=== PATIENT | female | born 1995 | race African-American/Black ===

== ENCOUNTER 2018-05-09 11:35 | Inpatient (IN) ==
[2018-05-09] MEDS ORDERED: Sod Chloride 0.9% Inj 1,000 ML IV.SIG ONE (13:10)
--- NOTE | 2018-05-09 13:39 | ED ---
HPI General Chief complaint: Weakness Stated complaint: R Leg Numbness Time Seen by Provider: 05/09/18 12:54 Source: patient, EMS and RN notes reviewed Mode of arrival: EMS History of Present Illness HPI narrative: 22yF presenting with generalized weakness, myalgias, palpitations , and dizziness. The patient states that she was seen at [facility] 5 days ago for epigastric pain, was diagnosed with gastritis, and started on Pepcid BID. She says that since starting this medication, she has noticed a dark discoloration to her urine and continues to have "aching" epigastric pain. This morning, she was getting ready for work and says that when she stood up she felt "dizzy like I was going to pass out", had palpitations that lasted for 1-2 minutes, and had to sit down because she felt too weak to stand. She also reports full-body myalgias today as well. Contrary to triage note, patient reports generalized weakness but denies numbness or tingling to any extremities. Family history non-contributory. Related Data Home Medications Medication Instructions Recorded Confirmed famotidine [Pepcid] 40 mg PO BID 05/09/18 05/09/18 Allergies Allergy/AdvReac Type Severity Reaction Status Date / Time No Known Allergies Allergy Unverified 05/09/18 12:33 Review of Systems ROS: all other systems reviewed are negative Constitutional Denies fever(s) Eyes Denies blurry vision ENT Denies nasal congestion Cardiovascular Denies chest pain Respiratory Denies cough Gastrointestinal Denies melena, Denies hematochezia and Denies vomiting Genitourinary Denies dysuria Musculoskeletal Reports myalgias Neurologic Denies confusion Psychiatric Denies confusion [facility] History History Provided By: Patient Medical History Medical History GERD (gastroesophageal reflux disease) (Acute) Surgical History Surgical History No history of previous surgery (Acute) Social History Social History Second Hand Smoke Exposure: No Smoking Status: Never smoker How Often Do You Have a Drink Containing Alcohol: Never Immunization History Tetanus Immunization: <5 Years Hx Influenza Vaccine This Season: No Exam Const General: healthy appearing and no acute distress [facility] Head: normocephalic and atraumatic Face and sinus: normal facial exam Eyes General: appearance normal, both eyes and all related structures Pupils: PERRL Chest Chest: normal inspection of the chest Resp Effort & Inspection: normal respiratory effort Auscultation: no rhonchi and no wheezes Other: Lungs clear to auscultation bilaterally Cardio Rate: regular rate Rhythm: regular rhythm Heart Sounds: no murmurs GI Inspection: non-distended Palpation: soft and nontender Skin General: no rashes or lesions noted Neuro General: alert, awake and oriented x3 Other: Pupils 3 mm and reactive bilaterally, no nystagmus Speech clear and fluent, no slurred speech or aphasia GCS 15 Motor strength 5/5 in all extremities, no pronator drift, sensation intact to all extremities No focal neuro deficits Psych Affect: normal affect Course Consultations Consultation #1: Case discussed with Dr. Segovia (), who recommends obtaining CT abd/ pelvis, sending acute hepatitis panel, GEOVANI, and says the patient will need to stay in the hospital for further workup. Time: 18:50 Initial Documented Vital Signs Temperature 98.5 F 05/09/18 14:45 Pulse Rate 72 05/09/18 14:45 Respiratory Rate 16 05/09/18 14:45 Blood Pressure 127/81 05/09/18 14:45 Pulse Oximetry 100 05/09/18 14:45 Last Documented Vital Signs Temperature 98.5 F 05/09/18 14:45 Pulse Rate 75 05/09/18 18:00 Respiratory Rate 16 05/09/18 18:00 Blood Pressure 122/71 05/09/18 18:00 Pulse Oximetry 100 05/09/18 14:45 Medical Decision Making [facility] Narrative Medical decision making narrative: Assessment: 22yF presenting with weakness, palpitations, myalgias Plan: EKG and monitor UA, UCG Labs IV fluids CXR Addendum: Patient's workup reveals significantly elevated bilirubin (direct) and alk phos with some elevation of AST/ ALT. Her RUQ US shows no significant abnormalities. The patient denies any recent acetaminophen, aspirin, drug or alcohol, or other medication use. Case discussed with GI (please see consults section). I discussed these results with the patient as well as plan to keep her in the hospital for further workup; she understands and agrees. Case discussed with Dr. Ledesma [facility]. Medical Screen Exam Complete: Yes Emergency Medical Condition: Yes Differential Diagnosis Differential Diagnosis: Differential diagnosis includes, but is not limited to: dehydration, electrolyte abnormality, anemia, rhabdomyolysis, arrhythmia, UTI, Lab Data Lab results reviewed: Yes I reviewed the patient's lab results. Result diagrams: 05/09/18 13:40 05/09/18 13:40 POC Results POC Urine Results Negative Lab Results 05/09/18 05/09/18 05/09/18 Range/Units 13:40 13:40 13:40 WBC 7.4 (4.0-11.0) th/mm3 RBC 4.24 (4.00-5.30) mil/mm3 Hgb 11.9 (11.6-15.3) gm/dL Hct 36.3 (35.0-46.0) % MCV 85.8 (80.0-100.0) fL MCH 28.1 (27.0-34.0) pg MCHC 32.8 (32.0-36.0) % RDW 12.7 (11.6-17.2) % Plt Count 240 (150-450) th/mm3 MPV 8.0 (7.0-11.0) fL Neut % (Auto) 71.5 H (16.0-70.0) % Lymph % (Auto) 13.5 (9.0-44.0) % Barnes % (Auto) 11.1 H (0.0-8.0) % Eos % (Auto) 3.3 (0.0-4.0) % Baso % (Auto) 0.6 (0.0-2.0) % Neut # (Auto) 5.3 (1.8-7.7) th/mm3 Lymph # (Auto) 1.0 (1.0-4.8) th/mm3 Barnes # (Auto) 0.8 (0.0-0.9) th/mm3 Eos # (Auto) 0.2 (0.0-0.4) th/mm3 Baso # (Auto) 0.0 (0.0-0.2) th/mm3 WBC Differential . Differential Comment Auto diff final Sodium 140 (136-145) meq/L Potassium 3.8 (3.5-5.1) meq/L Chloride 103 (98-107) meq/L Carbon Dioxide 28.0 (21.0-32.0) meq/L Anion Gap 9 (5-15) meq/L BUN 5 L (7-18) mg/dL Creatinine 0.71 (0.50-1.00) mg/dL Estimated GFR Greater than 89 (>89) mL/min Random Glucose 91 (74-106) mg/dL Calcium 9.1 (8.5-10.1) mg/dL Total Bilirubin 4.4 H 4.4 H (0.2-1.0) mg/dL Direct Bilirubin 3.7 H (0.0-0.2) mg/dL Indirect Bilirubin 0.7 (0.0-0.8) mg/dL AST 75 H (15-37) U/L ALT 175 H (10-53) U/L Alkaline Phosphatase 297 H (45-117) U/L Total Creatine Kinase 40 (26-192) U/L Total Protein 8.1 (6.4-8.2) g/dL Albumin 3.1 L (3.4-5.0) g/dL Lipase 162 (73-393) U/L Urine Color (Yellw/Straw) Urine Clarity (Clear) Urine pH (5.0-8.5) Ur Specific [place] (1.002-1.035) Urine Protein (Neg-Trace) mg/dL Urine Glucose (UA) (Negative) mg/dL Urine Ketones (Negative) mg/dL Urine Occult Blood (Negative) Urine Nitrate (Negative) Urine Bilirubin (Negative) Urine Ictotest (Negative) Urine Urobilinogen (Less than 2) mg/dL Ur Leukocyte Esterase (Negative) Urine RBC (0-3) /hpf Urine WBC (0-5) /hpf Ur Squamous Epith Cells (0-5) /hpf Urine Bacteria (None) /hpf Urine Mucus (Occasional) /lpf Micro UA Comment Ur Microscopic Review Urine Culture Comments 05/09/18 Range/Units 13:47 WBC (4.0-11.0) th/mm3 RBC (4.00-5.30) mil/mm3 Hgb (11.6-15.3) gm/dL Hct (35.0-46.0) % MCV (80.0-100.0) fL MCH (27.0-34.0) pg MCHC (32.0-36.0) % RDW (11.6-17.2) % Plt Count (150-450) th/mm3 MPV (7.0-11.0) fL Neut % (Auto) (16.0-70.0) % Lymph % (Auto) (9.0-44.0) % Barnes % (Auto) (0.0-8.0) % Eos % (Auto) (0.0-4.0) % Baso % (Auto) (0.0-2.0) % Neut # (Auto) (1.8-7.7) th/mm3 Lymph # (Auto) (1.0-4.8) th/mm3 Barnes # (Auto) (0.0-0.9) th/mm3 Eos # (Auto) (0.0-0.4) th/mm3 Baso # (Auto) (0.0-0.2) th/mm3 WBC Differential Differential Comment Sodium (136-145) meq/L Potassium (3.5-5.1) meq/L Chloride (98-107) meq/L Carbon Dioxide (21.0-32.0) meq/L Anion Gap (5-15) meq/L BUN (7-18) mg/dL Creatinine (0.50-1.00) mg/dL Estimated GFR (>89) mL/min Random Glucose (74-106) mg/dL Calcium (8.5-10.1) mg/dL Total Bilirubin (0.2-1.0) mg/dL Direct Bilirubin (0.0-0.2) mg/dL Indirect Bilirubin (0.0-0.8) mg/dL AST (15-37) U/L ALT (10-53) U/L Alkaline Phosphatase (45-117) U/L Total Creatine Kinase (26-192) U/L Total Protein (6.4-8.2) g/dL Albumin (3.4-5.0) g/dL Lipase (73-393) U/L Urine Color Olga Lidia (Yellw/Straw) Urine Clarity Cloudy H (Clear) Urine pH 6.0 (5.0-8.5) Ur Specific [place] 1.019 (1.002-1.035) Urine Protein 30 H (Neg-Trace) mg/dL Urine Glucose (UA) Negative (Negative) mg/dL Urine Ketones Trace H (Negative) mg/dL Urine Occult Blood Negative (Negative) Urine Nitrate Negative (Negative) Urine Bilirubin Moderate H (Negative) Urine Ictotest Positive H (Negative) Urine Urobilinogen 4 or greater (Less than 2) mg/dL Ur Leukocyte Esterase Small H (Negative) Urine RBC 3 (0-3) /hpf Urine WBC 11 H (0-5) /hpf Ur Squamous Epith Cells 24 (0-5) /hpf Urine Bacteria Moderate H (None) /hpf Urine Mucus Moderate H (Occasional) /lpf Micro UA Comment Culture indicated Ur Microscopic Review Not Reportable Urine Culture Comments Culture indicated Imaging Data Radiologist's impression: Chest X-Ray 05/09/18 13:10 CONCLUSION: No acute cardiopulmonary disease. Gallbladder Ultrasound 05/09/18 15:44 CONCLUSION: 1. No evidence of gallstones or biliary tract obstruction. ECG Data Attestation: I personally reviewed and interpreted this ECG as follows: Interpretation: Rate: 100 BPM Rhythm: Sinus [place]: Normal Intervals: Normal intervals, no blocks, QTc 375 ms Q waves: None T waves: Upright, no inversions ST segments: No elevations or depressions Impression: Non-specific EKG, no previous EKG available for comparison. Discharge Plan Discharge Disposition Patient Disposition: 30 Still Patient Discharge Condition Condition: Good Discharge Details Diagnosis: Hyperbilirubinemia, Transaminitis, Abdominal pain, Acute UTI Physicians Team ED Provider: Jazmín Palomino Rxs /Orders / Referrals /Forms Prescriptions: No Action famotidine [Pepcid] 40 mg Tablet 40 mg PO BID RF: 0 Status ED Status: With Doctor
--- NOTE | 2018-05-09 14:09 | XR ---
EXAM DATE: 05/09/2018 1:32 PM EDT AGE/SEX: 22 years / Female INDICATIONS: . Palpitations CLINICAL DATA: This is the patient's initial encounter. Patient reports that signs and symptoms have been present for 2 days and indicates a pain score of 4/10. MEDICAL/SURGICAL HISTORY: None. None. COMPARISON: No prior exams available for comparison. FINDINGS: The lungs are clear without infiltrate, nodule, or mass. There is no appreciable pleural effusion fo r technique. Heart and mediastinum are unremarkable. CONCLUSION: No acute cardiopulmonary disease. Electronically signed by: Tyler Gibbons MD 05/09/2018 2:08 PM EDT
[2018-05-09 14:11] LABS: Baso % (Auto) 0.6 % (0.0-2.0); Eos # (Auto) 0.2 th/mm3 (0.0-0.4); Eos % (Auto) 3.3 % (0.0-4.0); Hematocrit 36.3 % (35.0-46.0); Hemoglobin 11.9 gm/dL (11.6-15.3); Lymph % (Auto) 13.5 % (9.0-44.0); Mean Corpuscular HGB Conc 32.8 % (32.0-36.0); Mean Corpuscular Hemoglobin 28.1 pg (27.0-34.0); Mean Corpuscular Volume 85.8 fL (80.0-100.0); Mono # (Auto) 0.8 th/mm3 (0.0-0.9); Mono % (Auto) 11.1 % (0.0-8.0); Neut # (Auto) 5.3 th/mm3 (1.8-7.7); Neut % (Auto) 71.5 % (16.0-70.0); Platelet Count 240 th/mm3 (150-450); Red Blood Count 4.24 mil/mm3 (4.00-5.30); Red Cell Distribution Width 12.7 % (11.6-17.2); White Blood Count 7.4 th/mm3 (4.0-11.0)
[2018-05-09 14:17] LABS: Bacteria,Urine Moderate /hpf; Bilirubin,Urine Moderate (Negative); Clarity,Urine Cloudy (Clear); Color,Urine Amber (Yellw/Straw); Glucose,Urine (UA) Negative (Negative); Leukocyte Esterase,Urine Small (Negative); Mucus,Urine Moderate /lpf (Occasional); Nitrite,Urine Negative (Negative); Specific Gravity,Urine 1.019 (1.002-1.035); Squamous Epithelial Cell,Urine 24 /hpf (0-5); Urobilinogen,Urine 4 or Greater mg/dL (Less than 2)
[2018-05-09 14:21] LABS: Ictotest,Urine Positive (Negative)
[2018-05-09 14:31] LABS: Alanine Aminotransferase 175 U/L (10-53); Albumin 3.1 g/dL (3.4-5.0); Anion Gap 9 meq/L (5-15); Aspartate Aminotransferase 75 U/L (15-37); Blood Urea Nitrogen 5 mg/dL (7-18); Calcium 9.1 mg/dL (8.5-10.1); Chloride 103 meq/L (98-107); Glomerular Filtration Rate Greater Than 89 mL/min (>89); Glucose,Random 91 mg/dL (74-106); Lipase 162 U/L (73-393); Potassium 3.8 meq/L (3.5-5.1); Sodium 140 meq/L (136-145)
[2018-05-09 14:33] LABS: Alkaline Phosphatase 297 U/L (45-117); Total Protein 8.1 g/dL (6.4-8.2)
[2018-05-09 14:34] LABS: Creatine Kinase 40 U/L (26-192)
--- NOTE | 2018-05-09 17:39 | US ---
EXAM DATE: 05/09/2018 5:37 PM EDT AGE/SEX: 22 years / Female INDICATIONS: Elevated bilirubin and liver functions. Epigastric pain. CLINICAL DATA: This is the patient's initial encounter. Patient reports that signs and symptoms have been present for 4 - 6 days and indicates a pain score of 4/10. MEDICAL/SURGICAL HISTORY: Gastroesophageal reflux disease. None. COMPARISON: No prior exams available for comparison. MEASUREMENTS: Liver:__ 17.0 cm. Common Bile Duct:__ 4mm. FINDINGS: Liver: Normal echotexture without focal lesion or ductal dilatation. Portal Vein: Hepatopedal flow seen in portal vein. Common Duct: No intraluminal mass or stone visualized. Gallbladder: No evidence of gallstones. No significant gallbladder wall thickening. There is no flui d around the gallbladder. Pancreas: The visualized portions are within normal limits Right Kidney: Normal echotexture and cortical thickness. No mass or hydronephrosis. CONCLUSION: 1. No evidence of gallstones or biliary tract obstruction. Electronically signed by: Freddy Desai MD 05/09/2018 5:38 PM EDT
[2018-05-09] MEDS ORDERED: Morphine Sulfate Inj 2 MG/ML Vial IV.PUSH ONE (19:29)
[2018-05-09] MEDS ORDERED: Prochlorperazine 25 MG Supp RECTAL PRN (19:49)
[2018-05-09] MEDS ORDERED: Bisacodyl 10 MG Supp RECTAL PRN (19:49)
--- NOTE | 2018-05-09 19:50 | CT ---
EXAM DATE: 05/09/2018 7:13 PM EDT AGE/SEX: 22 years / Female INDICATIONS: Right upper quadrant abdominal pain. CLINICAL DATA: This is the patient's initial encounter. Patient reports that signs and symptoms have been present for 4 - 6 days and indicates a pain score of 0/10. MEDICAL/SURGICAL HISTORY: Gastroesophageal reflux disease. None. RADIATION DOSE: 14.06 CTDI (mGy) COMPARISON: No prior exams available for comparison. TECHNIQUE: Multiple contiguous axial images were obtained through the abdomen. Images were obtained using multiple row detector helical technique. Using automated exposure control and adjustment of the mA and/or kV according to patient size, radiation dose was kept as low as reasonably achievable to o btain optimal diagnostic quality images. DICOM format image data is available electronically for rev iew and comparison. FINDINGS: Lower Lungs: The visualized lower lungs are clear. Liver: The liver has a homogeneous density without space-occupying lesion. There is no dilation of th e biliary tree. Spleen: Homogeneous density without enlargement. Pancreas: Unremarkable without mass or calcification. Kidneys: Normal in size and shape. No evidence of mass or hydronephrosis. Adrenal Glands: Unremarkable. Aorta: The aorta and proximal iliac vessels are grossly unremarkable without aneurysmal dilation. Bowel/Mesentery: The bowel loops are grossly unremarkable. The cecum and sigmoid colon have a normal configuration. Abdominal Wall: Intact. Retroperitoneum: No evidence of adenopathy in the retrocrural, para-aortic, or deep pelvic regions. Bladder: Contours are smooth. Reproductive Organs: No abnormal masses or calcifications seen. Inguinal: The inguinal region is unremarkable without evidence of adenopathy. Bony Structures: Unremarkable. CONCLUSION: Negative noncontrast CT examination of the abdomen and pelvis. Electronically signed by: Ger Peoples MD 05/09/2018 7:48 PM EDT
[2018-05-09] MEDS: Dextrose 5%/NaCl 0.45% Inj 1,000 ML IV.CONT SCH (21:11)
--- NOTE | 2018-05-09 21:45 | P.HPIM ---
History of Present Illness Primary Care Physician: Cyndy Madden History of Present Illness: 22-year-old female with who presents with a one-week history of dull intermittent nonradiating epigastric pain, progressively worsening generalized weakness, myalgias, palpitations, dizziness. She also notes that her urine has been dark. She visited an outside ER 1 week ago, got a CT which reportedly showed stomach wall thickening and was placed on PPI. She reports today she was so weak, she was unable to get out of bed, reports aching pain in all of her extremities, as well as palpitations upon standing.. She says subsequently however she has improved somewhat and muscle pain has improved as well. Review of Systems All other systems reviewed negative except as stated in HPI PMFSH - History History Provided By: Patient - Medical History Medical History: Medical History (Last Reviewed 05/09/18 @ 13:43 by Jazmín Palomino DO) GERD (gastroesophageal reflux disease) - Surgical History Surgical History: Surgical History (Last Reviewed 05/09/18 @ 13:43 by Jazmín Palomino DO) No history of previous surgery - Family History Family History: Family History (Last Updated 05/09/18 @ 21:39 by Waldo Sanchez MD) Mother Cholecystitis Father Healthy adult - Tobacco History Second Hand Smoke Exposure: No Smoking Status: Never smoker - Alcohol History How Often Do You Have a Drink Containing Alcohol: Never - Immunization History Tetanus Immunization: <5 Years Hx Influenza Vaccine This Season: No Medications and Allergies Active Medications: Active Medications Al Hydroxide/Mg Hydroxide (Milk Of Magnesia Liq) 30 ml PO Q12H PRN PRN Reason: Mild Constipation Bisacodyl (Dulcolax Supp) 10 mg RECTAL DAILY PRN PRN Reason: SEVERE CONSITIPATION Dextrose/Sodium Chloride (D5w/1/2 Ns Inj) 1,000 mls @ 150 mls/hr IV.CONT .Q6H40M DANIEL Last Admin: 05/09/18 21:11 Dose: 150 mls/hr Lactulose (Lactulose Liq) 30 ml PO DAILY PRN PRN Reason: SEVERE CONSITIPATION Metoclopramide HCl (Reglan Inj) 5 mg IV.PUSH Q6HR PRN; Protocol PRN Reason: NAUSEA OR VOMITING Ondansetron HCl (Zofran Inj) 4 mg IV.PUSH Q6H PRN PRN Reason: NAUSEA OR VOMITING Prochlorperazine (Compazine Supp) 25 mg RECTAL Q12HR PRN PRN Reason: NAUSEA OR VOMITING Sennosides (Senokot) 17.2 mg PO Q12H PRN PRN Reason: Moderate Constipation Allergies Allergy/AdvReac Type Severity Reaction Status Date / Time No Known Allergies Allergy Unverified 05/09/18 12:33 Home Medications Medication Instructions Recorded Confirmed Type famotidine [Pepcid] 40 mg PO BID 05/09/18 05/09/18 History Exam Vital signs: Vital Signs 05/09/18 14:45 05/09/18 18:00 Temperature 98.5 F Pulse Rate 72 75 Respiratory Rate 16 16 Blood Pressure 127/81 122/71 Pulse Oximetry 100 Narrative: GENERAL: Patient sitting up in bed. Appears comfortable. Alert and oriented 3. SKIN: Warm and dry. HEAD: Atraumatic. Normocephalic. EYES: Pupils equal and round. No scleral icterus. No injection or drainage. ENT: No nasal bleeding or discharge. Mucous membranes pink and moist. NECK: Trachea midline. No JVD. CARDIOVASCULAR: Regular rate and rhythm. RESPIRATORY: No accessory muscle use. Clear to auscultation. Breath sounds equal bilaterally. GASTROINTESTINAL: Abdomen soft, non-tender, nondistended. Hepatic and splenic margins not palpable.. Positive bowel sounds. MUSCULOSKELETAL: Extremities without clubbing, cyanosis, or edema. No obvious deformities. NEUROLOGICAL: Awake and alert. No obvious cranial nerve deficits. Motor grossly within normal limits. Five out of 5 muscle strength in the arms and legs. Normal speech. PSYCHIATRIC: Appropriate mood and affect; insight and judgment normal. Results - Labs CBC & Chem 7: 05/09/18 13:40 05/09/18 13:40 Labs: Short CBC 05/09/18 Range/Units 13:40 WBC 7.4 (4.0-11.0) th/mm3 Hgb 11.9 (11.6-15.3) gm/dL Hct 36.3 (35.0-46.0) % Plt Count 240 (150-450) th/mm3 [facility] 05/09/18 13:40 Sodium 140 Potassium 3.8 Chloride 103 Carbon Dioxide 28.0 BUN 5 L Creatinine 0.71 Calcium 9.1 Cardiac Enzymes 05/09/18 Range/Units 13:40 Total Creatine Kinase 40 (26-192) U/L Liver Function 05/09/18 05/09/18 Range/Units 13:40 13:40 Total Bilirubin 4.4 H 4.4 H (0.2-1.0) mg/dL Direct Bilirubin 3.7 H (0.0-0.2) mg/dL AST 75 H (15-37) U/L ALT 175 H (10-53) U/L Alkaline Phosphatase 297 H (45-117) U/L Albumin 3.1 L (3.4-5.0) g/dL Urine 05/09/18 Range/Units 13:47 Urine Color Olga Lidia (Yellw/Straw) Urine Clarity Cloudy H (Clear) Urine pH 6.0 (5.0-8.5) Ur Specific [place] 1.019 (1.002-1.035) Urine Protein 30 H (Neg-Trace) mg/dL Urine Glucose (UA) Negative (Negative) mg/dL - Imaging Impressions Chest X-Ray 05/09/18 13:10 CONCLUSION: No acute cardiopulmonary disease. Gallbladder Ultrasound 05/09/18 15:44 CONCLUSION: 1. No evidence of gallstones or biliary tract obstruction. Abdomen/Pelvis CT 05/09/18 18:49 CONCLUSION: Negative noncontrast CT examination of the abdomen and pelvis. Caprini VTE Risk Assessment Caprini VTE Risk Assessment: No/Low Risk (score <= 1) Caprini Risk Assessment Model: Point Value = 1 Point Value = 2 Point Value = 3 Point Value = 5 Age 41-60 Minor surgery BMI > 25 kg/m2 Swollen legs Varicose veins or History of unexplained or recurrent spontaneous Oral contraceptives or hormone replacement Sepsis (< 1 month) Serious lung disease, including pneumonia (< 1 month) Abnormal pulmonary function Acute myocardial infarction Congestive heart failure (< 1 month) History of inflammatory bowel disease Medical patient at bed rest Age 61-74 Arthroscopic surgery Major open surgery (> 45 min) Laparoscopic surgery (> 45 min) Malignancy Confined to bed (> 72 hours) Immobilizing plaster cast Central venous access Age >= 75 History of VTE Family history of VTE Factor V Leiden Prothrombin [id number] Lupus anticoagulant Anticardiolipin antibodies Elevated serum homocysteine Heparin-induced thrombocytopenia Other congenital or acquired thrombophilia Stroke (< 1 month) Elective arthroplasty Hip, pelvis, or leg fracture Acute spinal cord injury (< 1 month) Prophylaxis Regimen: Total Risk Factor Score Risk Level Prophylaxis Regimen 0-1 Low Early ambulation 2 Moderate Order ONE of the following: *Sequential Compression Device (SCD) *Heparin 5000 units SQ BID 3-4 Higher Order ONE of the following medications: *Heparin 5000 units SQ TID *Enoxaparin/Lovenox 40 mg SQ daily (WT < 150 kg, CrCl > 30 mL/min) *Enoxaparin/Lovenox 30 mg SQ daily (WT < 150 kg, CrCl > 10-29 mL/min) *Enoxaparin/Lovenox 30 mg SQ BID (WT < 150 kg, CrCl > 30 mL/min) AND/OR *Sequential Compression Device (SCD) 5 or more Highest Order ONE of the following medications: *Heparin 5000 units SQ TID (Preferred with Epidurals) *Enoxaparin/Lovenox 40 mg SQ daily (WT < 150 kg, CrCl > 30 mL/min) *Enoxaparin/Lovenox 30 mg SQ daily (WT < 150 kg, CrCl > 10-29 mL/min) *Enoxaparin/Lovenox 30 mg SQ BID (WT < 150 kg, CrCl > 30 mL/min) AND *Sequential Compression Device (SCD) Assessment and Plan - Plan //Transaminitis //Direct hyperbilirubinemia //Abdominal pain -Liver ultrasound negative for cholecystitis -MRCP, hepatitis profile pending Pain control as necessary. -Consult GI. Appreciate assistance. //Myalgias, vague abdominal pain //Rule out porphyria -CK within normal limits. -We will check urine and plasma porphyrins. Start on D5 fluids. Discussed Condition With: Patient, nurse, ED physician.
[2018-05-09] MEDS ORDERED: Naloxone Inj 0.4 MG/ML Vial IV.PUSH PRN (21:46)
[2018-05-09 22:36] LABS: Hepatitis A IgM Antibody Nonreactive (Nonreactive); Hepatitits B Surface Antigen Nonreactive (Nonreactive)
[2018-05-09] MEDS: Pantoprazole Inj 40 MG Vial IV.PUSH SCH (23:09)
[2018-05-10 00:12] LABS: Amphetamine Screen,Urine Neg (Neg); Barbiturate Screen,Urine Neg (Neg); Cannabinoid Screen,Urine Neg (Neg); Cocaine Screen,Urine Neg (Neg)
[2018-05-10 00:31] LABS: Opiate Screen,Urine Neg (Neg)
[2018-05-10] MEDS: Dextrose 5%/NaCl 0.45% Inj 1,000 ML IV.CONT SCH ×4 (04:06→16:00)
[2018-05-10 06:39] LABS: Baso % (Auto) 0.6 % (0.0-2.0); Eos # (Auto) 0.4 th/mm3 (0.0-0.4); Eos % (Auto) 5.5 % (0.0-4.0); Hematocrit 32.5 % (35.0-46.0); Hemoglobin 10.9 gm/dL (11.6-15.3); Lymph # (Auto) 1.1 th/mm3 (1.0-4.8); Lymph % (Auto) 15.7 % (9.0-44.0); Mean Corpuscular HGB Conc 33.5 % (32.0-36.0); Mean Corpuscular Hemoglobin 28.5 pg (27.0-34.0); Mean Corpuscular Volume 84.9 fL (80.0-100.0); Mono # (Auto) 0.8 th/mm3 (0.0-0.9); Mono % (Auto) 12.6 % (0.0-8.0); Neut # (Auto) 4.4 th/mm3 (1.8-7.7); Neut % (Auto) 65.6 % (16.0-70.0); Platelet Count 210 th/mm3 (150-450); Red Blood Count 3.83 mil/mm3 (4.00-5.30); Red Cell Distribution Width 13.1 % (11.6-17.2); White Blood Count 6.7 th/mm3 (4.0-11.0)
[2018-05-10 06:58] LABS: Albumin 2.7 g/dL (3.4-5.0); Anion Gap 8 meq/L (5-15); Aspartate Aminotransferase 60 U/L (15-37); Blood Urea Nitrogen 3 mg/dL (7-18); Calcium 8.7 mg/dL (8.5-10.1); Carbon Dioxide 27.4 meq/L (21.0-32.0); Chloride 106 meq/L (98-107); Glomerular Filtration Rate Greater Than 89 mL/min (>89); Glucose,Random 124 mg/dL (74-106); Potassium 3.4 meq/L (3.5-5.1); Sodium 141 meq/L (136-145)
[2018-05-10 07:01] LABS: Alanine Aminotransferase 140 U/L (10-53); Alkaline Phosphatase 274 U/L (45-117); Total Protein 7.2 g/dL (6.4-8.2)
--- NOTE | 2018-05-10 08:36 | P.CONGI ---
History of Present Illness Consult date: 05/10/18 Consult reason: Elevated LFTs Chief complaint: Hyperbilirubinemia, Elevated LFTs, Abdominal Pain History of Present Illness: This is a 22 yo F with no significant PMH who presented to [facility] lat night with multiple complaints including epigastric pain, nausea, body aches, weakness , and headaches. Our service has been consulted to evaluate pt for elevated liver enzymes. Pt reports that symptoms began on Sunday afternoon with back, leg and abdominal pain. She tried to sleep it off with no relief. Pt was seen in the [facility] ER on Sunday, had chest x-ray, no labs, was diagnosed with Gastritis/GERD and discharged home with a prescription for Pepcid that she has been taking twice a day. Pt reports some relief in the epigastric pain with the Pepcid but overall is not feeling much better. Currently, pt reports epigastric pain that is intermittent, states worse with movement, some relief with Pepcid, not related to PO intake. Also reports some occasional heartburn. States that she has been intermittently nauseous but has not had any emesis, not related to PO intake. Denies any changes in bowel habits but has not been having frequent BMs because she has not been eating. Denies any unintentional weight loss. Has been having dark urine that she states began when she was started on Pepcid on Sunday, denies noticing any yellowing to her eyes. Pt thinks she may have been running a fever but has not checked her temperature. Pt has been found to have elevated LFTs. She denies personal or known family history of liver issues, of note, she does not know her fathers medical history. Reports occasional ETOH, had two shots of alcohol two weeks ago. Started taking a new medication, Depo Medroxyprogesterone for control, her first injection was on March 01. She denies any other OTC medications, herbs , and supplements. Pt denies smoking, drug use and history of, tattoos. States that she has protected sex with one partner. <Miya Maravilla - Last Filed: 05/10/18 08:10> Review of Systems Constitutional: Reports body ache(s), Reports fatigue, Reports fever(s), Denies weight loss Cardiovascular: Denies chest pain Gastrointestinal: Reports abdominal pain, Reports nausea, Denies change in bowel habits, Denies vomiting Genitourinary: Reports abnormal periods (since being started on new control ) <Miya Maravilla - Last Filed: 05/10/18 08:10> PMFSH - History History Provided By: Patient - Medical History Medical History: Medical History (Last Updated 05/10/18 @ 08:34 by Miya Maravilla) (Acute) GERD (gastroesophageal reflux disease) - Family History Family History: Family History (Last Updated 05/09/18 @ 21:39 by Waldo Sanchez MD) Mother Cholecystitis Father Healthy adult - Tobacco History Second Hand Smoke Exposure: No Tobacco Use In Past 30 Days: No Smoking Status: Former smoker Tobacco Type: Cigarettes - Alcohol History How Often Do You Have a Drink Containing Alcohol: Monthly or less - Substance Use History Substance History: No History of Abuse - Immunization History Tetanus Immunization: <5 Years Hx Influenza Vaccine This Season: No <Miya Maravilla - Last Filed: 05/10/18 08:10> - Medical History Medical History: Medical History (Last Updated 05/10/18 @ 08:34 by Miya Maravilla) (Acute) GERD (gastroesophageal reflux disease) - Family History Family History: Family History (Last Updated 05/09/18 @ 21:39 by Waldo Sanchez MD) Mother Cholecystitis Father Healthy adult <Angle Jain - Last Filed: 05/10/18 15:27> Medications and Allergies Active Medications: Active Medications Al Hydroxide/Mg Hydroxide (Milk Of Magnesia Liq) 30 ml PO Q12H PRN PRN Reason: Mild Constipation Bisacodyl (Dulcolax Supp) 10 mg RECTAL DAILY PRN PRN Reason: SEVERE CONSITIPATION Dextrose/Sodium Chloride (D5w/1/2 Ns Inj) 1,000 mls @ 150 mls/hr IV.CONT .Q6H40M [facility] Last Admin: 05/10/18 05:50 Dose: 150 mls/hr Lactulose (Lactulose Liq) 30 ml PO DAILY PRN PRN Reason: SEVERE CONSITIPATION Metoclopramide HCl (Reglan Inj) 5 mg IV.PUSH Q6HR PRN; Protocol PRN Reason: NAUSEA OR VOMITING Naloxone HCl (Narcan Inj) 0.4 mg IV.PUSH UNSCH PRN PRN Reason: SEE LABEL COMMENTS Ondansetron HCl (Zofran Inj) 4 mg IV.PUSH Q6H PRN PRN Reason: NAUSEA OR VOMITING Oxycodone HCl (Roxicodone) 5 mg PO Q4H PRN PRN Reason: PAIN SCALE 3 TO 5 Oxycodone HCl (Roxicodone) 7.5 mg PO Q4H PRN PRN Reason: PAIN SCALE 6 TO 10 Pantoprazole Sodium (Protonix Inj) 40 mg IV.PUSH Q12H [facility] Last Admin: 05/09/18 23:09 Dose: 40 mg Prochlorperazine (Compazine Supp) 25 mg RECTAL Q12HR PRN PRN Reason: NAUSEA OR VOMITING Sennosides (Senokot) 17.2 mg PO Q12H PRN PRN Reason: Moderate Constipation <Miya Maravilla - Last Filed: 05/10/18 08:10> Active Medications: Active Medications Al Hydroxide/Mg Hydroxide (Milk Of Magnesia Liq) 30 ml PO Q12H PRN PRN Reason: Mild Constipation Bisacodyl (Dulcolax Supp) 10 mg RECTAL DAILY PRN PRN Reason: SEVERE CONSITIPATION Dextrose/Sodium Chloride (D5w/1/2 Ns Inj) 1,000 mls @ 150 mls/hr IV.CONT .Q6H40M [facility] Last Admin: 05/10/18 11:58 Dose: Not Given Lactulose (Lactulose Liq) 30 ml PO DAILY PRN PRN Reason: SEVERE CONSITIPATION Metoclopramide HCl (Reglan Inj) 5 mg IV.PUSH Q6HR PRN; Protocol PRN Reason: NAUSEA OR VOMITING Naloxone HCl (Narcan Inj) 0.4 mg IV.PUSH UNSCH PRN PRN Reason: SEE LABEL COMMENTS Ondansetron HCl (Zofran Inj) 4 mg IV.PUSH Q6H PRN PRN Reason: NAUSEA OR VOMITING Oxycodone HCl (Roxicodone) 5 mg PO Q4H PRN PRN Reason: PAIN SCALE 3 TO 5 Oxycodone HCl (Roxicodone) 7.5 mg PO Q4H PRN PRN Reason: PAIN SCALE 6 TO 10 Pantoprazole Sodium (Protonix Inj) 40 mg IV.PUSH Q12H [facility] Last Admin: 05/10/18 11:46 Dose: 40 mg Prochlorperazine (Compazine Supp) 25 mg RECTAL Q12HR PRN PRN Reason: NAUSEA OR VOMITING Sennosides (Senokot) 17.2 mg PO Q12H PRN PRN Reason: Moderate Constipation <Angle Jain - Last Filed: 05/10/18 15:27> Allergies Allergy/AdvReac Type Severity Reaction Status Date / Time No Known Allergies Allergy Unverified 05/09/18 12:33 Home Medications Medication Instructions Recorded Confirmed Type famotidine [Pepcid] 40 mg PO BID 05/09/18 05/09/18 History Exam Vital signs: Vital Signs 05/09/18 14:45 05/09/18 18:00 05/09/18 20:00 Temperature 98.5 F 99.5 F Pulse Rate 72 75 94 H Respiratory Rate 16 16 18 Blood Pressure 127/81 122/71 116/67 Pulse Oximetry 100 100 05/10/18 00:00 05/10/18 03:46 Temperature 99.5 F 98.6 F Pulse Rate 98 H 80 Respiratory Rate 18 16 Blood Pressure 108/63 128/73 Pulse Oximetry 98 100 Intake & Output 05/09/18 05/10/18 05/10/18 18:59 06:59 18:59 Intake Total 2100 / 2100 Output Total 550 / 550 Balance 1550 / 1550 Weight 86.183 kg Intake: IV 2100 / 2100 D5W/1/2 NS Inj 1,000 ML @ 150 1000 / 1000 mls/hr IV.CONT .Q6H40M [facility] Rx#: [id number] Rocephin Inj 1,000 MG In NS Inj 100 / 100 100 ML @ 200 mls/hr IV.SIG ONCE ONE Rx#:[id number] Oral 0 / 0 Output: Urine 550 / 550 Other: Weight On Admission 86.183 kg - Constitutional no acute distress - Routine HEENT Exam Head: Present: normocephalic, atraumatic Eye: Present: conjunctival icterus - Routine Respiratory Exam Absent: accessory muscle use - Routine Cardiovascular Exam Present: RRR - Routine Abdominal Exam Present: soft, normoactive bowel sounds. Absent: tenderness, distended - Routine Skin Exam Present: dry, warm - Routine Neurological Exam Present: alert, oriented X3 <Miya Maravilla - Last Filed: 05/10/18 08:10> Vital signs: Vital Signs 05/09/18 18:00 05/09/18 20:00 05/10/18 00:00 Temperature 99.5 F 99.5 F Pulse Rate 75 94 H 98 H Respiratory Rate 18 Blood Pressure 122/71 116/67 108/63 Pulse Oximetry 100 98 05/10/18 03:46 05/10/18 08:00 05/10/18 12:00 Temperature 98.6 F 98.1 F 99.5 F Pulse Rate 80 76 88 Respiratory Rate 18 Blood Pressure 128/73 125/76 135/83 Pulse Oximetry 100 99 100 Intake & Output 05/09/18 05/10/18 05/10/18 18:59 06:59 18:59 Intake Total 2100 / 2100 Output Total 550 / 550 Balance 1550 / 1550 Weight 86.183 kg Intake: IV 2100 / 2100 D5W/1/2 NS Inj 1,000 ML @ 150 1000 / 1000 mls/hr IV.CONT .Q6H40M [facility] Rx#: [id number] Rocephin Inj 1,000 MG In NS Inj 100 / 100 100 ML @ 200 mls/hr IV.SIG ONCE ONE Rx#:[id number] Oral 0 / 0 Output: Urine 550 / 550 Other: Weight On Admission 86.183 kg <Angle Jain - Last Filed: 05/10/18 15:27> Results - Labs CBC & Chem 7: 05/10/18 06:09 05/10/18 06:09 Labs: Laboratory Results - last 24 hr 05/09/18 05/09/18 05/09/18 13:40 13:40 13:40 WBC 7.4 RBC 4.24 Hgb 11.9 Hct 36.3 MCV 85.8 MCH 28.1 MCHC 32.8 RDW 12.7 Plt Count 240 MPV 8.0 Neut % (Auto) 71.5 H Lymph % (Auto) 13.5 [place] % (Auto) 11.1 H Eos % (Auto) 3.3 Baso % (Auto) 0.6 Neut # (Auto) 5.3 Lymph # (Auto) 1.0 [place] # (Auto) 0.8 Eos # (Auto) 0.2 Baso # (Auto) 0.0 WBC Differential . Differential Comment Auto diff final Sodium 140 Potassium 3.8 Chloride 103 Carbon Dioxide 28.0 Anion Gap 9 BUN 5 L Creatinine 0.71 Estimated GFR Greater than 89 Random Glucose 91 Calcium 9.1 Total Bilirubin 4.4 H 4.4 H Direct Bilirubin 3.7 H Indirect Bilirubin 0.7 AST 75 H ALT 175 H Alkaline Phosphatase 297 H Total Creatine Kinase 40 Total Protein 8.1 Albumin 3.1 L Lipase 162 Beta HCG, Qual Urine Color Urine Clarity Urine pH Ur Specific [place] Urine Protein Urine Glucose (UA) Urine Ketones Urine Occult Blood Urine Nitrate Urine Bilirubin Urine Ictotest Urine Urobilinogen Ur Leukocyte Esterase Urine RBC Urine WBC Ur Squamous Epith Cells Urine Bacteria Urine Mucus Micro UA Comment Ur Microscopic Review Urine Culture Comments Urine Opiates Screen Ur Barbiturates Screen Ur Amphetamines Screen U Benzodiazepines Scrn Urine Cocaine Screen U Cannabinoids Screen Hepatitis A IgM Ab Hep Bs Antigen Hep B Core IgM Ab Hep C IgG Ab 05/09/18 05/09/18 05/09/18 13:40 13:47 13:47 WBC RBC Hgb Hct MCV MCH MCHC RDW Plt Count MPV Neut % (Auto) Lymph % (Auto) [place] % (Auto) Eos % (Auto) Baso % (Auto) Neut # (Auto) Lymph # (Auto) [place] # (Auto) Eos # (Auto) Baso # (Auto) WBC Differential Differential Comment Sodium Potassium Chloride Carbon Dioxide Anion Gap BUN Creatinine Estimated GFR Random Glucose Calcium Total Bilirubin Direct Bilirubin Indirect Bilirubin AST ALT Alkaline Phosphatase Total Creatine Kinase Total Protein Albumin Lipase Beta HCG, Qual Less than 1.0 Urine Color Olga Lidia Urine Clarity Cloudy H Urine pH 6.0 Ur Specific [place] 1.019 Urine Protein 30 H Urine Glucose (UA) Negative Urine Ketones Trace H Urine Occult Blood Negative Urine Nitrate Negative Urine Bilirubin Moderate H Urine Ictotest Positive H Urine Urobilinogen 4 or greater Ur Leukocyte Esterase Small H Urine RBC 3 Urine WBC 11 H Ur Squamous Epith Cells 24 Urine Bacteria Moderate H Urine Mucus Moderate H Micro UA Comment Culture indicated Ur Microscopic Review Not Reportable Urine Culture Comments Culture indicated Urine Opiates Screen Neg Ur Barbiturates Screen Neg Ur Amphetamines Screen Neg U Benzodiazepines Scrn Neg Urine Cocaine Screen Neg U Cannabinoids Screen Neg Hepatitis A IgM Ab Hep Bs Antigen Hep B Core IgM Ab Hep C IgG Ab 05/09/18 05/10/18 05/10/18 20:53 06:09 06:09 WBC 6.7 RBC 3.83 L Hgb 10.9 L Hct 32.5 L MCV 84.9 MCH 28.5 MCHC 33.5 RDW 13.1 Plt Count 210 MPV 8.0 Neut % (Auto) 65.6 Lymph % (Auto) 15.7 [place] % (Auto) 12.6 H Eos % (Auto) 5.5 H Baso % (Auto) 0.6 Neut # (Auto) 4.4 Lymph # (Auto) 1.1 [place] # (Auto) 0.8 Eos # (Auto) 0.4 Baso # (Auto) 0.0 WBC Differential . Differential Comment Auto diff final Sodium 141 Potassium 3.4 L Chloride 106 Carbon Dioxide 27.4 Anion Gap 8 BUN 3 L Creatinine 0.67 Estimated GFR Greater than 89 Random Glucose 124 H Calcium 8.7 Total Bilirubin 3.6 H Direct Bilirubin Indirect Bilirubin AST 60 H ALT 140 H Alkaline Phosphatase 274 H Total Creatine Kinase Total Protein 7.2 D Albumin 2.7 L Lipase Beta HCG, Qual Urine Color Urine Clarity Urine pH Ur Specific [place] Urine Protein Urine Glucose (UA) Urine Ketones Urine Occult Blood Urine Nitrate Urine Bilirubin Urine Ictotest Urine Urobilinogen Ur Leukocyte Esterase Urine RBC Urine WBC Ur Squamous Epith Cells Urine Bacteria Urine Mucus Micro UA Comment Ur Microscopic Review Urine Culture Comments Urine Opiates Screen Ur Barbiturates Screen Ur Amphetamines Screen U Benzodiazepines Scrn Urine Cocaine Screen U Cannabinoids Screen Hepatitis A IgM Ab Nonreactive Hep Bs Antigen Nonreactive Hep B Core IgM Ab Nonreactive Hep C IgG Ab Nonreactive - Imaging Impressions Chest X-Ray 05/09/18 13:10 CONCLUSION: No acute cardiopulmonary disease. Gallbladder Ultrasound 05/09/18 15:44 CONCLUSION: 1. No evidence of gallstones or biliary tract obstruction. Abdomen/Pelvis CT 05/09/18 18:49 CONCLUSION: Negative noncontrast CT examination of the abdomen and pelvis. <Miya Maravilla - Last Filed: 05/10/18 08:10> - Labs CBC & Chem 7: 05/10/18 06:09 05/10/18 06:09 Labs: Laboratory Results - last 24 hr 05/09/18 05/09/18 05/09/18 13:40 13:40 13:47 WBC RBC Hgb Hct MCV MCH MCHC RDW Plt Count MPV Neut % (Auto) Lymph % (Auto) [place] % (Auto) Eos % (Auto) Baso % (Auto) Neut # (Auto) Lymph # (Auto) [place] # (Auto) Eos # (Auto) Baso # (Auto) WBC Differential Differential Comment Sodium Potassium Chloride Carbon Dioxide Anion Gap BUN Creatinine Estimated GFR Random Glucose Calcium Iron TIBC % Saturation Ferritin Total Bilirubin 4.4 H Direct Bilirubin 3.7 H Indirect Bilirubin 0.7 AST ALT Alkaline Phosphatase Total Protein Albumin Triglycerides Cholesterol LDL Cholesterol, Calc HDL Cholesterol Cholesterol/HDL Ratio Beta HCG, Qual Less than 1.0 Urine Color Olga Lidia Urine Clarity Cloudy H Urine pH 6.0 Ur Specific [place] 1.019 Urine Protein 30 H Urine Glucose (UA) Negative Urine Ketones Trace H Urine Occult Blood Negative Urine Nitrate Negative Urine Bilirubin Moderate H Urine Ictotest Positive H Urine Urobilinogen 4 or greater Ur Leukocyte Esterase Small H Urine RBC 3 Urine WBC 11 H Ur Squamous Epith Cells 24 Urine Bacteria Moderate H Urine Mucus Moderate H Micro UA Comment Culture indicated Urine Culture Comments Culture indicated Urine Opiates Screen Ur Barbiturates Screen Ur Amphetamines Screen U Benzodiazepines Scrn Urine Cocaine Screen U Cannabinoids Screen Hepatitis A IgM Ab Hep Bs Antigen Hep B Core IgM Ab Hep C IgG Ab Monoscreen 05/09/18 05/09/18 05/10/18 13:47 20:53 06:09 WBC 6.7 RBC 3.83 L Hgb 10.9 L Hct 32.5 L MCV 84.9 MCH 28.5 MCHC 33.5 RDW 13.1 Plt Count 210 MPV 8.0 Neut % (Auto) 65.6 Lymph % (Auto) 15.7 [place] % (Auto) 12.6 H Eos % (Auto) 5.5 H Baso % (Auto) 0.6 Neut # (Auto) 4.4 Lymph # (Auto) 1.1 [place] # (Auto) 0.8 Eos # (Auto) 0.4 Baso # (Auto) 0.0 WBC Differential . Differential Comment Auto diff final Sodium Potassium Chloride Carbon Dioxide Anion Gap BUN Creatinine Estimated GFR Random Glucose Calcium Iron TIBC % Saturation Ferritin Total Bilirubin Direct Bilirubin Indirect Bilirubin AST ALT Alkaline Phosphatase Total Protein Albumin Triglycerides Cholesterol LDL Cholesterol, Calc HDL Cholesterol Cholesterol/HDL Ratio Beta HCG, Qual Urine Color Urine Clarity Urine pH Ur Specific [place] Urine Protein Urine Glucose (UA) Urine Ketones Urine Occult Blood Urine Nitrate Urine Bilirubin Urine Ictotest Urine Urobilinogen Ur Leukocyte Esterase Urine RBC Urine WBC Ur Squamous Epith Cells Urine Bacteria Urine Mucus Micro UA Comment Urine Culture Comments Urine Opiates Screen Neg Ur Barbiturates Screen Neg Ur Amphetamines Screen Neg U Benzodiazepines Scrn Neg Urine Cocaine Screen Neg U Cannabinoids Screen Neg Hepatitis A IgM Ab Nonreactive Hep Bs Antigen Nonreactive Hep B Core IgM Ab Nonreactive Hep C IgG Ab Nonreactive Monoscreen 05/10/18 05/10/18 05/10/18 06:09 11:45 11:45 WBC RBC Hgb Hct MCV MCH MCHC RDW Plt Count MPV Neut % (Auto) Lymph % (Auto) [place] % (Auto) Eos % (Auto) Baso % (Auto) Neut # (Auto) Lymph # (Auto) [place] # (Auto) Eos # (Auto) Baso # (Auto) WBC Differential Differential Comment Sodium 141 Potassium 3.4 L Chloride 106 Carbon Dioxide 27.4 Anion Gap 8 BUN 3 L Creatinine 0.67 Estimated GFR Greater than 89 Random Glucose 124 H Calcium 8.7 Iron 47 L TIBC 329 % Saturation 14.3 L Ferritin 120 Total Bilirubin 3.6 H Direct Bilirubin Indirect Bilirubin AST 60 H ALT 140 H Alkaline Phosphatase 274 H Total Protein 7.2 D Albumin 2.7 L Triglycerides 92 Cholesterol 150 LDL Cholesterol, Calc 108 H HDL Cholesterol 23.6 L Cholesterol/HDL Ratio 6.35 Beta HCG, Qual Urine Color Urine Clarity Urine pH Ur Specific [place] Urine Protein Urine Glucose (UA) Urine Ketones Urine Occult Blood Urine Nitrate Urine Bilirubin Urine Ictotest Urine Urobilinogen Ur Leukocyte Esterase Urine RBC Urine WBC Ur Squamous Epith Cells Urine Bacteria Urine Mucus Micro UA Comment Urine Culture Comments Urine Opiates Screen Ur Barbiturates Screen Ur Amphetamines Screen U Benzodiazepines Scrn Urine Cocaine Screen U Cannabinoids Screen Hepatitis A IgM Ab Hep Bs Antigen Hep B Core IgM Ab Hep C IgG Ab Monoscreen Neg - Imaging Impressions Gallbladder Ultrasound 05/09/18 15:44 CONCLUSION: 1. No evidence of gallstones or biliary tract obstruction. Abdomen/Pelvis CT 05/09/18 18:49 CONCLUSION: Negative noncontrast CT examination of the abdomen and pelvis. Cholangiopancreatography MRI 05/10/18 00:00 CONCLUSION: 1. Negative examination of the biliary tree <Angle Jain - Last Filed: 05/10/18 15:27> Assessment and Plan - Plan Assessment: -Elevated LFTs AST-60 ALT-140 Alk phos-274 T bili-3.6 lipase WNL Pt denies personal or family history of liver issues. Occasional ETOH, states two shots of liquor two weeks ago. Denies smoking and drug use. Denies tattoos. Protected sex with one sexual partner. New prescription: Depo Medroxyprogesterone, first injection was March 01. Denies any other OTC medications, herbs, supplements. Of note, was started on Pepcid on Sunday when she was seen at [facility] ER- chest xray done normal, no labs, diagnosed with Gastritis/GERD Complaining of: Epigastric pain, intermittent since Sunday, burning sensation, worse with movement, some improvement with Pepcid, not changed with PO intake. Also complaining of body aches- legs, back, and head. Dark urine since starting Pepcid on Sunday. Subjective fevers, has not checked her temperature. Occasional heartburn. Some nausea, denies emesis, not related to PO intake. Denies unintentional weight loss, history of GI issues. Has never had EGD or colonoscopy. Family history: Mother had gallstones, unknown father medical history. Liver work up: US gallbladder (05/09) No evidence of gallstones or biliary tract obstruction. CT abdomen and pelvis WO IV contrast (05/09) Negative noncontrast CT examination of the abdomen and pelvis. Hepatitis panel negative Plan: MRCP Lipid panel Liver work up [place] screen Depending on findings, EGD Sunday or outpt depending on course Monitor LFTs ? medication induced if above work up negative Avoid hepatotoxins Further recommendations to follow Pt has been seen and examined by myself and Dr. Jain and this note is written on his behalf <Miya Maravilla - Last Filed: 05/10/18 08:10> - Plan Seen and examined with [employer] [facility], unclear etiolgy of LFT elevation. MRCP ordered. LFTs improving , continue to monitor. Dr Flores will follow. Thank you The exam, history, and the medical decision-making described in the above note were completed with the assistance of the mid-level provider. I reviewed and agree with the findings presented. I attest that I had a [id number] encounter with the patient on the same day, and personally performed and documented my assessment and findings in the medical record. <Angle Jain - Last Filed: 05/10/18 15:27>
--- NOTE | 2018-05-10 09:36 | ECG ---
Date Performed: 05/09/2018 Time Performed: 14:49:19 PTAGE: 22 years EKG: SINUS TACHYCARDIA ABNORMAL RHYTHM ECG NO PREVIOUS TRACING DOCTOR: Memo Hernandez Interpretating Date/Time 05/10/2018 09:33:49
--- NOTE | 2018-05-10 10:30 | MR ---
EXAM DATE: 05/10/2018 9:44 AM EDT AGE/SEX: 22 years / Female INDICATIONS: Abdominal pain. CLINICAL DATA: This is the patient's initial encounter. Patient reports that signs and symptoms have been present for 1 day and indicates a pain score of 0/10. MEDICAL/SURGICAL HISTORY: None. None. COMPARISON: [facility], CT ABDOMEN & PELVIS W/O CONTRAST, 05/09/2018. . TECHNIQUE: Multiplanar, multisequence images of the abdomen were obtained without contrast including dedicated cholangiographic images. FINDINGS: The liver and spleen are free of focal defects. The gallbladder and pancreas demonstrate no abnormali ty. The adrenal glands demonstrate no abnormality. The kidneys demonstrate no hydronephrosis or mass. No free fluid or abdominal masses are identified. No para-aortic adenopathy is seen Examination of biliary tree with multiplanar and 3-D reconstruction demonstrates no evidence of commo n duct stone. No intrahepatic or extra hepatic ductal dilatation is identified. The pancreatic duct i s unremarkable. CONCLUSION: 1. Negative examination of the biliary tree Electronically signed by: Memo Reardon MD 05/10/2018 10:29 AM EDT
[2018-05-10] MEDS: Pantoprazole Inj 40 MG Vial IV.PUSH SCH ×2 (11:46→21:04)
[2018-05-10 12:21] LABS: % Iron Saturation 14.3 % (20-50)
[2018-05-10 12:23] LABS: Chol/HDL Ratio 6.35 Ratio; HDL Cholesterol 23.6 mg/dL (40.0-60.0)
[2018-05-10 13:20] LABS: Mono Screen Neg (Neg)
--- NOTE | 2018-05-10 15:44 | P.PNIM ---
Subjective Interval history: 22-year-old female with who presents with a one-week history of dull intermittent nonradiating epigastric pain, progressively worsening generalized weakness, myalgias, palpitations, dizziness. She also notes that her urine has been dark. She visited an outside ER 1 week ago, got a CT which reportedly showed stomach wall thickening and was placed on PPI. She reports today she was so weak, she was unable to get out of bed, reports aching pain in all of her extremities, as well as palpitations upon standing.. She says subsequently however she has improved somewhat and muscle pain has improved as well. 8 HAD MRCP THAT IS NEGATIVE POSSIBLY PASSED A STONE AM LABS DW RN AND PT AND CM WILL ADVANCE DIET AM LABS Physical Exam Vital signs: Vital Signs 05/09/18 18:00 05/09/18 20:00 05/10/18 00:00 Temperature 99.5 F 99.5 F Pulse Rate 75 94 H 98 H Respiratory Rate 16 18 18 Blood Pressure 122/71 116/67 108/63 Pulse Oximetry 100 98 05/10/18 03:46 05/10/18 08:00 05/10/18 12:00 Temperature 98.6 F 98.1 F 99.5 F Pulse Rate 80 76 88 Respiratory Rate 16 18 18 Blood Pressure 128/73 125/76 135/83 Pulse Oximetry 100 99 100 Intake & Output 05/09/18 05/10/18 05/10/18 18:59 06:59 18:59 Intake Total 2100 / 2100 1000 / 1000 Output Total 550 / 550 Balance 1550 / 1550 1000 / 1000 Weight 86.183 kg Intake: IV 2100 / 2100 1000 / 1000 D5W/1/2 NS Inj 1,000 ML @ 150 1000 / 1000 1000 / 1000 mls/hr IV.CONT .Q6H40M [facility] Rx#: [id number] Rocephin Inj 1,000 MG In NS Inj 100 / 100 100 ML @ 200 mls/hr IV.SIG ONCE ONE Rx#:[id number] Oral 0 / 0 Output: Urine 550 / 550 Other: Weight On Admission 86.183 kg Narrative: GENERAL: Patient sitting up in bed. Appears comfortable. Alert and oriented 3. SKIN: Warm and dry. HEAD: Atraumatic. Normocephalic. EYES: Pupils equal and round. No scleral icterus. No injection or drainage. ENT: No nasal bleeding or discharge. Mucous membranes pink and moist. NECK: Trachea midline. No JVD. CARDIOVASCULAR: Regular rate and rhythm. RESPIRATORY: No accessory muscle use. Clear to auscultation. Breath sounds equal bilaterally. GASTROINTESTINAL: Abdomen soft, non-tender, nondistended. Hepatic and splenic margins not palpable.. Positive bowel sounds. MUSCULOSKELETAL: Extremities without clubbing, cyanosis, or edema. No obvious deformities. NEUROLOGICAL: Awake and alert. No obvious cranial nerve deficits. Motor grossly within normal limits. Five out of 5 muscle strength in the arms and legs. Normal speech. PSYCHIATRIC: Appropriate mood and affect; insight and judgment normal. Results - Labs CBC & Chem 7: 05/10/18 06:09 05/10/18 06:09 Laboratory Results - last 24 hr 05/09/18 05/09/18 05/09/18 13:40 13:40 13:47 WBC RBC Hgb Hct MCV MCH MCHC RDW Plt Count MPV Neut % (Auto) Lymph % (Auto) [place] % (Auto) Eos % (Auto) Baso % (Auto) Neut # (Auto) Lymph # (Auto) [place] # (Auto) Eos # (Auto) Baso # (Auto) WBC Differential Differential Comment Sodium Potassium Chloride Carbon Dioxide Anion Gap BUN Creatinine Estimated GFR Random Glucose Calcium Iron TIBC % Saturation Ferritin Total Bilirubin 4.4 H Direct Bilirubin 3.7 H Indirect Bilirubin 0.7 AST ALT Alkaline Phosphatase Total Protein Albumin Triglycerides Cholesterol LDL Cholesterol, Calc HDL Cholesterol Cholesterol/HDL Ratio Beta HCG, Qual Less than 1.0 Urine Color Olga Lidia Urine Clarity Cloudy H Urine pH 6.0 Ur Specific [place] 1.019 Urine Protein 30 H Urine Glucose (UA) Negative Urine Ketones Trace H Urine Occult Blood Negative Urine Nitrate Negative Urine Bilirubin Moderate H Urine Ictotest Positive H Urine Urobilinogen 4 or greater Ur Leukocyte Esterase Small H Urine RBC 3 Urine WBC 11 H Ur Squamous Epith Cells 24 Urine Bacteria Moderate H Urine Mucus Moderate H Micro UA Comment Culture indicated Urine Culture Comments Culture indicated Urine Opiates Screen Ur Barbiturates Screen Ur Amphetamines Screen U Benzodiazepines Scrn Urine Cocaine Screen U Cannabinoids Screen Hepatitis A IgM Ab Hep Bs Antigen Hep B Core IgM Ab Hep C IgG Ab Monoscreen 05/09/18 05/09/18 05/10/18 13:47 20:53 06:09 WBC 6.7 RBC 3.83 L Hgb 10.9 L Hct 32.5 L MCV 84.9 MCH 28.5 MCHC 33.5 RDW 13.1 Plt Count 210 MPV 8.0 Neut % (Auto) 65.6 Lymph % (Auto) 15.7 [place] % (Auto) 12.6 H Eos % (Auto) 5.5 H Baso % (Auto) 0.6 Neut # (Auto) 4.4 Lymph # (Auto) 1.1 [place] # (Auto) 0.8 Eos # (Auto) 0.4 Baso # (Auto) 0.0 WBC Differential . Differential Comment Auto diff final Sodium Potassium Chloride Carbon Dioxide Anion Gap BUN Creatinine Estimated GFR Random Glucose Calcium Iron TIBC % Saturation Ferritin Total Bilirubin Direct Bilirubin Indirect Bilirubin AST ALT Alkaline Phosphatase Total Protein Albumin Triglycerides Cholesterol LDL Cholesterol, Calc HDL Cholesterol Cholesterol/HDL Ratio Beta HCG, Qual Urine Color Urine Clarity Urine pH Ur Specific [place] Urine Protein Urine Glucose (UA) Urine Ketones Urine Occult Blood Urine Nitrate Urine Bilirubin Urine Ictotest Urine Urobilinogen Ur Leukocyte Esterase Urine RBC Urine WBC Ur Squamous Epith Cells Urine Bacteria Urine Mucus Micro UA Comment Urine Culture Comments Urine Opiates Screen Neg Ur Barbiturates Screen Neg Ur Amphetamines Screen Neg U Benzodiazepines Scrn Neg Urine Cocaine Screen Neg U Cannabinoids Screen Neg Hepatitis A IgM Ab Nonreactive Hep Bs Antigen Nonreactive Hep B Core IgM Ab Nonreactive Hep C IgG Ab Nonreactive Monoscreen 05/10/18 05/10/18 05/10/18 06:09 11:45 11:45 WBC RBC Hgb Hct MCV MCH MCHC RDW Plt Count MPV Neut % (Auto) Lymph % (Auto) [place] % (Auto) Eos % (Auto) Baso % (Auto) Neut # (Auto) Lymph # (Auto) [place] # (Auto) Eos # (Auto) Baso # (Auto) WBC Differential Differential Comment Sodium 141 Potassium 3.4 L Chloride 106 Carbon Dioxide 27.4 Anion Gap 8 BUN 3 L Creatinine 0.67 Estimated GFR Greater than 89 Random Glucose 124 H Calcium 8.7 Iron 47 L TIBC 329 % Saturation 14.3 L Ferritin 120 Total Bilirubin 3.6 H Direct Bilirubin Indirect Bilirubin AST 60 H ALT 140 H Alkaline Phosphatase 274 H Total Protein 7.2 D Albumin 2.7 L Triglycerides 92 Cholesterol 150 LDL Cholesterol, Calc 108 H HDL Cholesterol 23.6 L Cholesterol/HDL Ratio 6.35 Beta HCG, Qual Urine Color Urine Clarity Urine pH Ur Specific [place] Urine Protein Urine Glucose (UA) Urine Ketones Urine Occult Blood Urine Nitrate Urine Bilirubin Urine Ictotest Urine Urobilinogen Ur Leukocyte Esterase Urine RBC Urine WBC Ur Squamous Epith Cells Urine Bacteria Urine Mucus Micro UA Comment Urine Culture Comments Urine Opiates Screen Ur Barbiturates Screen Ur Amphetamines Screen U Benzodiazepines Scrn Urine Cocaine Screen U Cannabinoids Screen Hepatitis A IgM Ab Hep Bs Antigen Hep B Core IgM Ab Hep C IgG Ab Monoscreen Neg Microbiology 05/09/18 13:47 Clean Catch Urine Urine Culture - Preliminary Immature growth - reincubate - Imaging Impressions Gallbladder Ultrasound 05/09/18 15:44 CONCLUSION: 1. No evidence of gallstones or biliary tract obstruction. Abdomen/Pelvis CT 05/09/18 18:49 CONCLUSION: Negative noncontrast CT examination of the abdomen and pelvis. Cholangiopancreatography MRI 05/10/18 00:00 CONCLUSION: 1. Negative examination of the biliary tree Assessment and Plan - Plan Transaminitis Direct hyperbilirubinemia Abdominal pain -Liver ultrasound negative for cholecystitis -MRCP, hepatitis profile pending-BOTH NEGATIVE Pain control as necessary. -Consult GI. Appreciate assistance. Myalgias, vague abdominal pain Rule out porphyria -CK within normal limits. -We will check urine and plasma porphyrins. Start on D5 fluids. UTI- ROCEPHIN CLEAR LIQUID DIET DW RN AND PT Code Status: FULL CODE Discussed Condition With: RN AND PT AND CM Discharge Planning: PENDING IMPROVEMENT
[2018-05-11] MEDS: Dextrose 5%/NaCl 0.45% Inj 1,000 ML IV.CONT SCH ×4 (01:49→21:55)
[2018-05-11 08:36] LABS: Baso % (Auto) 0.5 % (0.0-2.0); Eos # (Auto) 0.5 th/mm3 (0.0-0.4); Eos % (Auto) 7.6 % (0.0-4.0); Hematocrit 35.8 % (35.0-46.0); Hemoglobin 11.8 gm/dL (11.6-15.3); Lymph # (Auto) 1.2 th/mm3 (1.0-4.8); Lymph % (Auto) 20.4 % (9.0-44.0); Mean Corpuscular Hemoglobin 28.5 pg (27.0-34.0); Mean Corpuscular Volume 86.1 fL (80.0-100.0); Mean Platelet Volume 8.1 fL (7.0-11.0); Mono # (Auto) 0.7 th/mm3 (0.0-0.9); Mono % (Auto) 12.1 % (0.0-8.0); Neut # (Auto) 3.6 th/mm3 (1.8-7.7); Neut % (Auto) 59.4 % (16.0-70.0); Platelet Count 240 th/mm3 (150-450); Red Blood Count 4.16 mil/mm3 (4.00-5.30); Red Cell Distribution Width 12.9 % (11.6-17.2)
[2018-05-11 08:39] LABS: INR 1.1 Ratio; Prothrombin Time 10.7 sec (9.8-11.6)
[2018-05-11 08:59] LABS: Albumin 2.8 g/dL (3.4-5.0); Anion Gap 10 meq/L (5-15); Aspartate Aminotransferase 75 U/L (15-37); Blood Urea Nitrogen 3 mg/dL (7-18); Calcium 8.6 mg/dL (8.5-10.1); Carbon Dioxide 25.6 meq/L (21.0-32.0); Chloride 106 meq/L (98-107); Glomerular Filtration Rate Greater Than 89 mL/min (>89); Glucose,Random 103 mg/dL (74-106); Potassium 3.7 meq/L (3.5-5.1); Sodium 142 meq/L (136-145)
[2018-05-11] MEDS: Pantoprazole Inj 40 MG Vial IV.PUSH SCH ×2 (09:03→21:54)
[2018-05-11 09:08] LABS: Alanine Aminotransferase 143 U/L (10-53); Alkaline Phosphatase 321 U/L (45-117); Phosphorus 3.8 mg/dL (2.5-4.9); Total Protein 7.8 g/dL (6.4-8.2)
--- NOTE | 2018-05-11 09:21 | P.PNIM ---
Subjective Interval history: 22-year-old female with who presents with a one-week history of dull intermittent nonradiating epigastric pain, progressively worsening generalized weakness, myalgias, palpitations, dizziness. She also notes that her urine has been dark. She visited an outside ER 1 week ago, got a CT which reportedly showed stomach wall thickening and was placed on PPI. She reports today she was so weak, she was unable to get out of bed, reports aching pain in all of her extremities, as well as palpitations upon standing.. She says subsequently however she has improved somewhat and muscle pain has improved as well. 05-10 HAD MRCP THAT IS NEGATIVE POSSIBLY PASSED A STONE AM LABS DW RN AND PT AND CM WILL ADVANCE DIET AM LABS 05-11 LFTS STILL UP AM LABS WILL DW RN AND PT AND CM AM LABS WAIT FOR THEM TO TREND DOWN Physical Exam Vital signs: Vital Signs 05/10/18 12:00 05/10/18 16:00 05/10/18 20:00 Temperature 99.5 F 98.7 F 99.6 F Pulse Rate 88 96 H 87 Respiratory Rate 18 18 18 Blood Pressure 135/83 117/71 113/75 Pulse Oximetry 100 100 99 05/11/18 00:00 05/11/18 03:57 05/11/18 08:00 Temperature 98.1 F 98.7 F 99.0 F Pulse Rate 85 72 68 Respiratory Rate 18 18 14 Blood Pressure 110/64 119/61 122/78 Pulse Oximetry 97 98 98 Intake & Output 05/10/18 05/11/18 05/11/18 18:59 06:59 18:59 Intake Total 1350 / 1350 100 / 100 Balance 1350 / 1350 100 / 100 Weight 86.183 kg Intake: IV 1000 / 1000 100 / 100 D5W/1/2 NS Inj 1,000 ML @ 150 1000 / 1000 mls/hr IV.CONT .Q6H40M [facility] Rx#: [id number] Rocephin Inj 1,000 MG In NS Inj 100 / 100 100 ML @ 200 mls/hr IV.SIG Q24H [facility] Rx#:[id number] Oral 350 / 350 Other: # Voids 5 4 Date of Last Bowel Movement 05/08/18 05/09/18 Narrative: GENERAL: Patient sitting up in bed. Appears comfortable. Alert and oriented 3. SKIN: Warm and dry. HEAD: Atraumatic. Normocephalic. EYES: Pupils equal and round. No scleral icterus. No injection or drainage. ENT: No nasal bleeding or discharge. Mucous membranes pink and moist. NECK: Trachea midline. No JVD. CARDIOVASCULAR: Regular rate and rhythm. RESPIRATORY: No accessory muscle use. Clear to auscultation. Breath sounds equal bilaterally. GASTROINTESTINAL: Abdomen soft, non-tender, nondistended. Hepatic and splenic margins not palpable.. Positive bowel sounds. MUSCULOSKELETAL: Extremities without clubbing, cyanosis, or edema. No obvious deformities. NEUROLOGICAL: Awake and alert. No obvious cranial nerve deficits. Motor grossly within normal limits. Five out of 5 muscle strength in the arms and legs. Normal speech. PSYCHIATRIC: Appropriate mood and affect; insight and judgment normal. Results - Labs CBC & Chem 7: 05/11/18 07:45 05/11/18 07:45 Laboratory Results - last 24 hr 05/09/18 05/09/18 05/10/18 13:47 20:53 11:45 WBC RBC Hgb Hct MCV MCH MCHC RDW Plt Count MPV Neut % (Auto) Lymph % (Auto) [place] % (Auto) Eos % (Auto) Baso % (Auto) Neut # (Auto) Lymph # (Auto) [place] # (Auto) Eos # (Auto) Baso # (Auto) WBC Differential Differential Comment PT INR Sodium Potassium Chloride Carbon Dioxide Anion Gap BUN Creatinine Estimated GFR Random Glucose Calcium Phosphorus Magnesium Iron 47 L TIBC 329 % Saturation 14.3 L Ferritin 120 Total Bilirubin AST ALT Alkaline Phosphatase Total Protein Albumin Triglycerides 92 Cholesterol 150 LDL Cholesterol, Calc 108 H HDL Cholesterol 23.6 L Cholesterol/HDL Ratio 6.35 TSH Free T4 Urine Color Olga Lidia Urine Clarity Cloudy H Urine pH 6.0 Ur Specific [place] 1.019 Urine Protein 30 H Urine Glucose (UA) Negative Urine Ketones Trace H Urine Occult Blood Negative Urine Nitrate Negative Urine Bilirubin Moderate H Urine Ictotest Positive H Urine Urobilinogen 4 or greater Ur Leukocyte Esterase Small H Urine RBC 3 Urine WBC 11 H Ur Squamous Epith Cells 24 Urine Bacteria Moderate H Urine Mucus Moderate H Micro UA Comment Culture indicated Urine Culture Comments Culture indicated GEOVANI Screen Neg Monoscreen 05/10/18 05/11/18 05/11/18 11:45 07:45 07:45 WBC 6.0 RBC 4.16 Hgb 11.8 Hct 35.8 MCV 86.1 MCH 28.5 MCHC 33.0 RDW 12.9 Plt Count 240 MPV 8.1 Neut % (Auto) 59.4 Lymph % (Auto) 20.4 [place] % (Auto) 12.1 H Eos % (Auto) 7.6 H Baso % (Auto) 0.5 Neut # (Auto) 3.6 Lymph # (Auto) 1.2 [place] # (Auto) 0.7 Eos # (Auto) 0.5 H Baso # (Auto) 0.0 WBC Differential . Differential Comment Auto diff final PT 10.7 INR 1.1 Sodium Potassium Chloride Carbon Dioxide Anion Gap BUN Creatinine Estimated GFR Random Glucose Calcium Phosphorus Magnesium Iron TIBC % Saturation Ferritin Total Bilirubin AST ALT Alkaline Phosphatase Total Protein Albumin Triglycerides Cholesterol LDL Cholesterol, Calc HDL Cholesterol Cholesterol/HDL Ratio TSH Free T4 Urine Color Urine Clarity Urine pH Ur Specific [place] Urine Protein Urine Glucose (UA) Urine Ketones Urine Occult Blood Urine Nitrate Urine Bilirubin Urine Ictotest Urine Urobilinogen Ur Leukocyte Esterase Urine RBC Urine WBC Ur Squamous Epith Cells Urine Bacteria Urine Mucus Micro UA Comment Urine Culture Comments GEOVANI Screen Monoscreen Neg 05/11/18 07:45 WBC RBC Hgb Hct MCV MCH MCHC RDW Plt Count MPV Neut % (Auto) Lymph % (Auto) [place] % (Auto) Eos % (Auto) Baso % (Auto) Neut # (Auto) Lymph # (Auto) [place] # (Auto) Eos # (Auto) Baso # (Auto) WBC Differential Differential Comment PT INR Sodium 142 Potassium 3.7 Chloride 106 Carbon Dioxide 25.6 Anion Gap 10 BUN 3 L Creatinine 0.68 Estimated GFR Greater than 89 Random Glucose 103 Calcium 8.6 Phosphorus 3.8 Magnesium 2.0 Iron TIBC % Saturation Ferritin Total Bilirubin 3.1 H AST 75 H ALT 143 H Alkaline Phosphatase 321 H Total Protein 7.8 D Albumin 2.8 L Triglycerides Cholesterol LDL Cholesterol, Calc HDL Cholesterol Cholesterol/HDL Ratio TSH 2.300 Free T4 1.60 H Urine Color Urine Clarity Urine pH Ur Specific [place] Urine Protein Urine Glucose (UA) Urine Ketones Urine Occult Blood Urine Nitrate Urine Bilirubin Urine Ictotest Urine Urobilinogen Ur Leukocyte Esterase Urine RBC Urine WBC Ur Squamous Epith Cells Urine Bacteria Urine Mucus Micro UA Comment Urine Culture Comments GEOVANI Screen Monoscreen Microbiology 05/09/18 13:47 Clean Catch Urine Urine Culture - Preliminary Immature growth - reincubate - Imaging Impressions Cholangiopancreatography MRI 05/10/18 00:00 CONCLUSION: 1. Negative examination of the biliary tree - Procedures NONE Assessment and Plan - Plan Transaminitis Direct hyperbilirubinemia Abdominal pain -Liver ultrasound negative for cholecystitis -MRCP, hepatitis profile pending-BOTH NEGATIVE Pain control as necessary. -Consult GI. Appreciate assistance. Myalgias, vague abdominal pain Rule out porphyria -CK within normal limits. -We will check urine and plasma porphyrins. Start on D5 fluids. UTI- ROCEPHIN CLEAR LIQUID DIET DOM RN AND PT Code Status: FULL CODE Discussed Condition With: DOM RN AND PT AND CM Discharge Planning: PENDING IMPROVEMENT
[2018-05-11 10:42] LABS: Hemoglobin A1c 5.8 % (4.3-6.0)
[2018-05-11 15:29] LABS: Alpha 1 Antitrypsin 259 mg/dL (100 - 190); Smooth Muscle Total Auto Abs Negative (Negative)
[2018-05-12] MEDS: Dextrose 5%/NaCl 0.45% Inj 1,000 ML IV.CONT SCH ×2 (04:03→09:23)
[2018-05-12 07:14] LABS: Baso # (Auto) 0.1 th/mm3 (0.0-0.2); Baso % (Auto) 0.9 % (0.0-2.0); Eos # (Auto) 0.5 th/mm3 (0.0-0.4); Eos % (Auto) 7.5 % (0.0-4.0); Hematocrit 33.1 % (35.0-46.0); Lymph # (Auto) 1.9 th/mm3 (1.0-4.8); Lymph % (Auto) 29.2 % (9.0-44.0); Mean Corpuscular HGB Conc 33.4 % (32.0-36.0); Mean Corpuscular Hemoglobin 28.5 pg (27.0-34.0); Mean Corpuscular Volume 85.3 fL (80.0-100.0); Mean Platelet Volume 7.9 fL (7.0-11.0); Mono # (Auto) 0.8 th/mm3 (0.0-0.9); Mono % (Auto) 12.2 % (0.0-8.0); Neut # (Auto) 3.2 th/mm3 (1.8-7.7); Neut % (Auto) 50.2 % (16.0-70.0); Platelet Count 239 th/mm3 (150-450); Red Blood Count 3.87 mil/mm3 (4.00-5.30); Red Cell Distribution Width 12.9 % (11.6-17.2); White Blood Count 6.4 th/mm3 (4.0-11.0)
[2018-05-12 07:27] LABS: Albumin 2.7 g/dL (3.4-5.0); Anion Gap 8 meq/L (5-15); Aspartate Aminotransferase 112 U/L (15-37); Blood Urea Nitrogen 5 mg/dL (7-18); Calcium 8.7 mg/dL (8.5-10.1); Carbon Dioxide 26.8 meq/L (21.0-32.0); Chloride 107 meq/L (98-107); Gamma Glutamyl Transpeptidase 433 U/L (5-55); Glomerular Filtration Rate Greater Than 89 mL/min (>89); Glucose,Random 112 mg/dL (74-106); Magnesium 1.8 mg/dL (1.5-2.5); Potassium 3.6 meq/L (3.5-5.1); Sodium 142 meq/L (136-145)
[2018-05-12 07:40] LABS: Alanine Aminotransferase 159 U/L (10-53); Alkaline Phosphatase 331 U/L (45-117); Phosphorus 5.1 mg/dL (2.5-4.9); Total Protein 7.2 g/dL (6.4-8.2)
[2018-05-12] MEDS: Pantoprazole Inj 40 MG Vial IV.PUSH SCH (09:23)
--- NOTE | 2018-05-12 10:20 | P.PNGI ---
Subjective Interval history: asymptomatic overnight and tolerating diet well. Physical Exam Vital signs: Vital Signs 05/11/18 12:00 05/11/18 16:00 05/11/18 19:38 Temperature 99.2 F 99.4 F 99.4 F Pulse Rate 72 79 79 Respiratory Rate 16 14 18 Blood Pressure 120/74 126/76 110/69 Pulse Oximetry 100 98 99 05/11/18 23:49 05/12/18 03:25 05/12/18 08:17 Temperature 98.3 F 98.2 F 96.8 F L Pulse Rate 63 72 72 Respiratory Rate 16 16 20 Blood Pressure 105/55 L 119/60 120/60 Pulse Oximetry 98 100 96 Intake & Output 05/11/18 05/12/18 05/12/18 18:59 06:59 18:59 Intake Total 580 / 580 1000 / 1000 1000 / 1000 Balance 580 / 580 1000 / 1000 1000 / 1000 Intake: IV 100 / 100 1000 / 1000 1000 / 1000 D5W/1/2 NS Inj 1,000 ML @ 150 1000 / 1000 1000 / 1000 mls/hr IV.CONT .Q6H40M [facility] Rx#: [id number] Rocephin Inj 1,000 MG In NS Inj 100 / 100 100 ML @ 200 mls/hr IV.SIG Q24H [facility] Rx#:[id number] Oral 480 / 480 Other: # Voids 3 4 Date of Last Bowel Movement 05/11/18 05/11/18 # Bowel Movements 1 0 Narrative: GENERAL: Patient sitting up in bed. Appears comfortable. Alert and oriented 3. SKIN: Warm and dry. HEAD: Atraumatic. Normocephalic. EYES: Pupils equal and round. No scleral icterus. No injection or drainage. ENT: No nasal bleeding or discharge. Mucous membranes pink and moist. NECK: Trachea midline. No JVD. CARDIOVASCULAR: Regular rate and rhythm. RESPIRATORY: No accessory muscle use. Clear to auscultation. Breath sounds equal bilaterally. GASTROINTESTINAL: Abdomen soft, non-tender, nondistended. Hepatic and splenic margins not palpable.. Positive bowel sounds. MUSCULOSKELETAL: Extremities without clubbing, cyanosis, or edema. No obvious deformities. NEUROLOGICAL: Awake and alert. No obvious cranial nerve deficits. Motor grossly within normal limits. Five out of 5 muscle strength in the arms and legs. Normal speech. PSYCHIATRIC: Appropriate mood and affect; insight and judgment normal. Results - Labs CBC & Chem 7: 05/12/18 06:00 05/12/18 06:00 Laboratory Results - last 24 hr 05/10/18 05/11/18 05/12/18 11:45 07:45 06:00 WBC 6.4 RBC 3.87 L Hgb 11.0 L Hct 33.1 L MCV 85.3 MCH 28.5 MCHC 33.4 RDW 12.9 Plt Count 239 MPV 7.9 Neut % (Auto) 50.2 Lymph % (Auto) 29.2 [place] % (Auto) 12.2 H Eos % (Auto) 7.5 H Baso % (Auto) 0.9 Neut # (Auto) 3.2 Lymph # (Auto) 1.9 [place] # (Auto) 0.8 Eos # (Auto) 0.5 H Baso # (Auto) 0.1 WBC Differential . Differential Comment Auto diff final Sodium Potassium Chloride Carbon Dioxide Anion Gap BUN Creatinine Estimated GFR Random Glucose Hemoglobin A1c 5.8 Calcium Phosphorus Magnesium Total Bilirubin GGT AST ALT Alkaline Phosphatase Total Protein Albumin [id number] 259 H Anti-Smooth Muscle Ab Negative 05/12/18 06:00 WBC RBC Hgb Hct MCV MCH MCHC RDW Plt Count MPV Neut % (Auto) Lymph % (Auto) [place] % (Auto) Eos % (Auto) Baso % (Auto) Neut # (Auto) Lymph # (Auto) [place] # (Auto) Eos # (Auto) Baso # (Auto) WBC Differential Differential Comment Sodium 142 Potassium 3.6 Chloride 107 Carbon Dioxide 26.8 Anion Gap 8 BUN 5 L Creatinine 0.77 Estimated GFR Greater than 89 Random Glucose 112 H Hemoglobin A1c Calcium 8.7 Phosphorus 5.1 H D Magnesium 1.8 Total Bilirubin 1.7 H GGT 433 H AST 112 H ALT 159 H Alkaline Phosphatase 331 H Total Protein 7.2 D Albumin 2.7 L Gphem-[id number] Anti-Smooth Muscle Ab Microbiology 05/09/18 13:47 Clean Catch Urine Urine Culture - Final 50-100,000 cfu/mL mixed gram positive chayo (probable contaminants) - Procedures NONE Assessment and Plan - Plan Abnormal LFT, unknown etiology Work for Viral hepatitis negative, autoimmune serology pending. LFT still increasing. Plan: Daily LFT's Check autoimmune markers. Liver biopsy if enzymes still going up. Supportive care for now.
--- NOTE | 2018-05-12 11:16 | P.PNIM ---
Subjective Interval history: Follow-up for epigastric pain, generalized weakness Generalized weakness better, myalgia better, dizziness gone. Epigastric pain resolving. Denies any abdominal pain at all Physical Exam Vital signs: Vital Signs 05/11/18 12:00 05/11/18 16:00 05/11/18 19:38 Temperature 99.2 F 99.4 F 99.4 F Pulse Rate 72 79 79 Respiratory Rate 16 14 18 Blood Pressure 120/74 126/76 110/69 Pulse Oximetry 100 98 99 05/11/18 23:49 05/12/18 03:25 05/12/18 08:17 Temperature 98.3 F 98.2 F 96.8 F L Pulse Rate 63 72 72 Respiratory Rate 16 16 20 Blood Pressure 105/55 L 119/60 120/60 Pulse Oximetry 98 100 96 Intake & Output 05/11/18 05/12/18 05/12/18 18:59 06:59 18:59 Intake Total 580 / 580 1000 / 1000 1000 / 1000 Balance 580 / 580 1000 / 1000 1000 / 1000 Intake: IV 100 / 100 1000 / 1000 1000 / 1000 D5W/1/2 NS Inj 1,000 ML @ 150 1000 / 1000 1000 / 1000 mls/hr IV.CONT .Q6H40M [facility] Rx#: [id number] Rocephin Inj 1,000 MG In NS Inj 100 / 100 100 ML @ 200 mls/hr IV.SIG Q24H [facility] Rx#:[id number] Oral 480 / 480 Other: # Voids 3 4 Date of Last Bowel Movement 05/11/18 05/11/18 # Bowel Movements 1 0 Narrative: Not in distress Anicteric, [place] conjunctivae RRR, no murmurs CTAB, no wheezing Clear breath sounds No edema Alert awake and oriented 3, no focal deficits. Results - Labs CBC & Chem 7: 05/12/18 06:00 05/12/18 06:00 Laboratory Results - last 24 hr 05/10/18 05/12/18 05/12/18 11:45 06:00 06:00 WBC 6.4 RBC 3.87 L Hgb 11.0 L Hct 33.1 L MCV 85.3 MCH 28.5 MCHC 33.4 RDW 12.9 Plt Count 239 MPV 7.9 Neut % (Auto) 50.2 Lymph % (Auto) 29.2 [place] % (Auto) 12.2 H Eos % (Auto) 7.5 H Baso % (Auto) 0.9 Neut # (Auto) 3.2 Lymph # (Auto) 1.9 [place] # (Auto) 0.8 Eos # (Auto) 0.5 H Baso # (Auto) 0.1 WBC Differential . Differential Comment Auto diff final Sodium 142 Potassium 3.6 Chloride 107 Carbon Dioxide 26.8 Anion Gap 8 BUN 5 L Creatinine 0.77 Estimated GFR Greater than 89 Random Glucose 112 H Calcium 8.7 Phosphorus 5.1 H D Magnesium 1.8 Total Bilirubin 1.7 H GGT 433 H AST 112 H ALT 159 H Alkaline Phosphatase 331 H Total Protein 7.2 D Albumin 2.7 L [id number] 259 H Anti-Smooth Muscle Ab Negative Microbiology 05/09/18 13:47 Clean Catch Urine Urine Culture - Final 50-100,000 cfu/mL mixed gram positive chayo (probable contaminants) - Procedures NONE Assessment and Plan - Plan This is a 22-year-old female who presented with generalized weakness, myalgia and epigastric tenderness Transaminitis with Direct hyperbilirubinemia - Liver ultrasound negative for cholecystitis, MRCP negative, hepatitis profile negative, GI following, autoimmune serology pending, worsening AST/ALT, per GI, monitor LFTs daily, if workup negative, will need liver biopsy. Pain control as necessary, tolerating diet, stop D5 NS. Myalgias, vague epigastric abdominal pain Rule out porphyria -CK within normal limits. -Follow-up urine and plasma porphyrins. -still on Protonix IV, switch to oral. Asymptomatic bacteriuria/pyuria-patient did not have any urinary symptoms, urinalysis was positive, urine culture grew 50-100,000 mixed gram-positive chayo , doubt UTI, stop ceftriaxone, monitor. No leukocytosis, recheck CBC tomorrow. Regular diet Discharge once cleared by GI
[2018-05-12 15:50] LABS: Ceruloplasmin 46 mg/dL (18-53)
[2018-05-13 06:53] LABS: Albumin 2.6 g/dL (3.4-5.0)
[2018-05-13 06:56] LABS: Total Protein 7.4 g/dL (6.4-8.2)
--- NOTE | 2018-05-13 13:16 | P.PNIM ---
Subjective Interval history: f/u abdominal pain Denies any further abdominal pain, no nausea or vomiting. No fever, or urinary symptoms. Physical Exam Vital signs: Vital Signs 05/12/18 16:35 05/12/18 17:32 05/12/18 20:00 Temperature 97.9 F 98.2 F 98.3 F Pulse Rate 70 112 H 89 Respiratory Rate 20 20 16 Blood Pressure 122/60 134/62 129/71 Pulse Oximetry 96 96 99 05/12/18 23:51 05/13/18 04:00 05/13/18 08:00 Temperature 98.7 F 98.5 F 97.8 F Pulse Rate 87 82 75 Respiratory Rate 15 16 16 Blood Pressure 117/87 119/66 130/73 Pulse Oximetry 99 99 98 05/13/18 12:00 Temperature 98.7 F Pulse Rate 83 Respiratory Rate 16 Blood Pressure 139/81 Pulse Oximetry 97 Intake & Output 05/12/18 05/13/18 05/13/18 18:59 06:59 18:59 Intake Total 1999 Balance 1999 Intake: IV 1999 D5W/09/11 NS Inj 1,000 ML @ 150 1999 mls/hr IV.CONT .Q6H40M [facility] Rx#: [id number] Other: # Voids 3 Date of Last Bowel Movement 05/11/18 Narrative: Not in distress Anicteric, [place] conjunctivae RRR, no murmurs CTAB, no wheezing Clear breath sounds Abdomen soft, nontender, nondistended. No edema Alert awake and oriented 3, no focal deficits. Results - Labs CBC & Chem 7: 05/12/18 06:00 05/12/18 06:00 Laboratory Results - last 24 hr 05/10/18 05/13/18 11:45 05:37 Total Bilirubin 1.2 H Direct Bilirubin 0.9 H Indirect Bilirubin 0.3 AST 100 H ALT 171 H Alkaline Phosphatase 327 H Total Protein 7.4 Albumin 2.6 L Ceruloplasmin 46 Endomysial Ab Titer ND Endomysial IgA Ab ND Tiss Transglutamin IgA Less than 1 - Procedures NONE Assessment and Plan - Plan This is a 22-year-old female who presented with generalized weakness, myalgia and epigastric tenderness Transaminitis with Direct hyperbilirubinemia - Liver ultrasound negative for cholecystitis, MRCP negative, hepatitis profile negative, GI following, autoimmune serology pending, worsening AST/ALT, per GI, monitor LFTs daily, bilirubin is improving, if workup negative, will need liver biopsy. Pain control as necessary, tolerating diet, stop D5 NS. Myalgias, vague epigastric abdominal pain Rule out porphyria -CK within normal limits. -Follow-up urine and plasma porphyrins. -Continue oral Protonix. Asymptomatic bacteriuria/pyuria-patient did not have any urinary symptoms, urinalysis was positive, urine culture grew 50-100,000 mixed gram-positive chayo , doubt UTI, stopped ceftriaxone, monitor. No leukocytosis. Regular diet Discharge once cleared by GI
[2018-05-14 06:53] LABS: Albumin 2.7 g/dL (3.4-5.0)
[2018-05-14 06:55] LABS: Total Protein 7.6 g/dL (6.4-8.2)
[2018-05-14 07:54] VITALS: RESP 20; O2SAT 100
[2018-05-14 12:04] VITALS: BP 121/78; PULSE 86; TEMP 98.2
--- NOTE | 2018-05-14 13:07 | P.DS ---
Date of admission: 05/13/18 14:52 Primary care physician: Cyndy Madden Brief History from admission: 22-year-old female with who presents with a one-week history of dull intermittent nonradiating epigastric pain, progressively worsening generalized weakness, myalgias, palpitations, dizziness. She also notes that her urine has been dark. She visited an outside ER 1 week ago, got a CT which reportedly showed stomach wall thickening and was placed on PPI. She reports today she was so weak, she was unable to get out of bed, reports aching pain in all of her extremities, as well as palpitations upon standing.. She says subsequently however she has improved somewhat and muscle pain has improved as well. DS: Diagnosis - Discharge Diagnosis (1) Transaminitis Status: Acute (2) Abdominal pain Status: Acute DS: Summary Hospital Course: This is a 22-year-old female with who presents with a one-week history of dull intermittent nonradiating epigastric pain, progressively worsening generalized weakness, myalgias, palpitations, dizziness. She had a CAT scan 1 week ago w/c showed stomach wall thickening and was placed on PPI. She returned to the ED for generalized weakness, and aching pain throughout her extremities. She was found to have transaminitis with direct hyperbilirubinemia. Liver ultrasound negative for cholecystitis, MRCP negative, hepatitis profile negative, autoimmune serology pending, after few days, LFT started to improve. She started tolerating diet. For her myalgia, CK was found to be normal. Workup for porphyria was initiated. Her urinalysis was positive but urine culture grew 50-100,000 mixed gram-positive chayo. She was initially started on ceftriaxone but when urine culture came back, this was discontinued especially with absence of urinary symptoms. Patient was discharge after LFTs improved and cleared by gastroenterology. She will need to follow-up with her primary care physician with repeat LFTs for monitoring. If she starts having worsening of LFTs, she might need a liver biopsy in the future. - Time Spent with Patient Total time spent providing and/or coordinating discharge services: Greater than 30 minutes - Quality: VTE Deep Vein Thrombosis/Pulmonary Embolism Present on Admission: No Exam Vital signs: Vital Signs 05/13/18 16:00 05/13/18 20:00 05/14/18 00:00 Temperature 97.9 F 98.5 F 98.4 F Pulse Rate 74 74 66 Respiratory Rate 16 16 16 Blood Pressure 121/57 L 139/85 124/69 Pulse Oximetry 98 100 99 05/14/18 07:51 05/14/18 12:00 Temperature 98.5 F 98.2 F Pulse Rate 87 86 Respiratory Rate 20 20 Blood Pressure 113/55 L 121/78 Pulse Oximetry 100 100 Intake & Output 05/13/18 05/14/18 05/14/18 18:59 06:59 18:59 Intake Total 500 / 500 Balance 500 / 500 Intake: Oral 500 / 500 Other: Date of Last Bowel Movement 05/13/18 Narrative: none Results Procedures completed during hospitalization: NONE Labs on day of discharge: Labs from last 24 hours 05/14/18 05:30 Total Bilirubin 1.0 Direct Bilirubin 0.8 H Indirect Bilirubin 0.2 AST 80 H ALT 158 H Alkaline Phosphatase 308 H Total Protein 7.6 Albumin 2.7 L - Impressions ITS Impressions Chest X-Ray 05/09/18 13:10 CONCLUSION: No acute cardiopulmonary disease. Gallbladder Ultrasound 05/09/18 15:44 CONCLUSION: 1. No evidence of gallstones or biliary tract obstruction. Abdomen/Pelvis CT 05/09/18 18:49 CONCLUSION: Negative noncontrast CT examination of the abdomen and pelvis. Cholangiopancreatography MRI 05/10/18 00:00 CONCLUSION: 1. Negative examination of the biliary tree Discharge Plan - Discharge Disposition Patient Disposition: 01 Discharge Home - Discharge Condition Condition: Good - Discharge Order Discharge Orders: Discharge Order (Routine); Ordered 05/14/18 Ordered By: Sina Moffett - Discharge Details Anticipated Discharge Date: 05/14/18 Discharge Comment: d/c after cleared by GI - Physicians Team Attending Provider: Sina Moffett Other Providers: Angle Jain MD
[2018-05-14 19:53] LABS: IgA Serum 218 mg/dL (81-463); Tissue Transglutaminase Ab IgG ND U/mL (())
[2018-05-16 16:17] LABS: Collection Duration Porphyrins 24 h; Coproporphyrin, Tetra 484 nmol/24 h (<=168); Heptacarboxylporphryins 3 nmol/24 h (<=9); Hexacarboxylporphryins 1 nmol/24 h (<=8); Urine Volume Porphyrins 1650 mL; Uroporphyrin, Octa 17 nmol/24 h (<=30)
== END 2018-05-14 14:05 | disposition home or self-care (01) ==
LOC: NEPD 11:35 → NEDA 11:35 → NEPGCP 21:20
PROVIDERS: ADMIT Hospitalist; ATTEND Hospitalist